=== PATIENT | male | born 1940 | race Caucasian/White ===

== ENCOUNTER 2016-05-26 11:03 | Emergency (ER) | payer MEDICARE, BC ==
--- NOTE | ~2016-05-26 | CT57 ---
[facility] A Service of [facility] & [facility] RADIOLOGY TEXT RESULTS PATIENT: SUZANNA ARROYO LOCATION: [facility] : 39 UNIT #: [id number] AGE: [address]: Amna Sears MD SEX: M ORDER DR: [id number] [facility] [address] [place], [place] [address] [id number] E MR#: [id number] Acc #: [id number] NAME: SUZANNA ARROYO. : 1940 SEX: M STUDY DATE/TIME: 05/26/2016 14:02 UNIT: [facility] ROOM: STUDY DESCRIPTION: CT Chest Wo Cont Attending Physician: Amna Sears M.D. Ordering Physician: Amna Sears M.D. Primary Care Physician: Katja Sosa M.D. MEDICAL IMAGING REPORT This report is preliminary unless electronic signature is present EXAM CT of the chest without contrast, 05/26/2016 COMPARISON 11/02/2015 HISTORY Transaxial imaging of the chest was performed without contrast and compared directly to the patient's study of October 2015. TECHNIQUE This CT exam was performed with one or more of the following radiation dose reduction techniques: automatic exposure control, adjustment of mA and/or kV according to patient size, and iterative reconstruction. FINDINGS Scans show evidence of chronic interstitial fibrotic changes. Calcified granuloma in the right upper lobe, pleural-based density in the left upper lobe stable. Fibrosis in the right middle lobe anteromedially and in the lingula. There is an area of pleural thickening or airspace disease in the superior segment of the left lower lobe. This is pleural-based measuring 1.4 x 3.6 cm. It is more prominent than it was on the patient's previous CAT scan. No mediastinal mass or lymphadenopathy. The patient has had prior bypass surgery. Scans through the upper abdomen show postop changes of prior left nephrectomy. CONCLUSION 1. Underlying pulmonary fibrosis. Areas of pulmonary parenchymal scarring in the apices and in the right middle lobe and lingula. 2. Area of pleural based density in the superior segment of the left lower lobe posteromedially on the right. This has increased in size measuring now about 3.6 x 1.4 cm. It has a little more rounded borders. Consider further imaging with PET/CT to determine any STS. [facility] A Service of [facility] RADIOLOGY TEXT RESULTS PATIENT: SUZANNA ARROYO LOCATION: [facility] : 39 UNIT #: [id number] AGE: [address]: Amna Sears MD SEX: M ORDER DR: activity. Dictated by... Tanner Perez M.D. THIS IS AN ELECTRONICALLY VERIFIED REPORT Tanner Perez M.D. at 05/27/2016 4:26 PM PAPI/fili TD: 05/26/2016 16:13 JOB #: [id number] MEDICAL IMAGING REPORT Page 1 of 1 COPY
--- NOTE | ~2016-05-26 | CT4 ---
[facility] A Service of [facility] RADIOLOGY TEXT RESULTS PATIENT: SUZANNA ARROYO LOCATION: [facility] : 39 UNIT #: [id number] AGE: [address]: Amna Sears MD SEX: M ORDER DR: [id number] [facility] [address] [place], [place] [address] [id number] E MR#: [id number] Acc #: [id number] NAME: SUZANNA ARROYO : 1940 SEX: M STUDY DATE/TIME: 05/26/2016 14:02 UNIT: [facility] ROOM: STUDY DESCRIPTION: CT Abd and Pelv Wo Cont Attending Physician: Amna Sears M.D. Ordering Physician: Amna Sears M.D. Primary Care Physician: Katja Sosa M.D. MEDICAL IMAGING REPORT This report is preliminary unless electronic signature is present EXAM CT of the abdomen and pelvis without contrast. DATE OF EXAM 05/26/2016 INDICATIONS 76-year-old male with burning in abdomen and nausea for 1 week. History of renal cell carcinoma and left nephrectomy. TECHNIQUE CT scan of the abdomen and pelvis was performed without contrast. Coronal and sagittal reformatted images were obtained. NOTE: This CT exam was performed with one or more of the following radiation dose reduction techniques: automatic exposure control, adjustment of mA and/or kV according to patient size, and iterative reconstruction. COMPARISON Comparison is made with 11/02/2015. FINDINGS Please refer to separate dictated CT of the chest for findings above the diaphragm. The liver and gallbladder are unremarkable. The spleen is unremarkable. Left nephrectomy. There is a tiny nonobstructing stone in the lower pole of the right kidney. The adrenal glands are unremarkable. The pancreas is unremarkable. PELVIS: Prostatic calcifications. Postop changes from inguinal herniorrhaphies. Colon is unremarkable. No free fluid in the pelvis. The bone windows are unremarkable. [facility] A Service of [facility] RADIOLOGY TEXT RESULTS PATIENT: SUZANNA ARROYO LOCATION: [facility] : 39 UNIT #: [id number] AGE: [address]: Amna Sears MD SEX: M ORDER DR: IMPRESSION 1. There are no acute findings. 2. Left nephrectomy. 3. Tiny nonobstructing stone in the right kidney. Dictated by... Edis Mccollum M.D. THIS IS AN ELECTRONICALLY VERIFIED REPORT Edis Mccollum M.D. at 05/26/2016 4:51 PM ZOYA/darcie TD: 05/26/2016 15:54 JOB #: [id number] MEDICAL IMAGING REPORT Page 1 of 1 COPY
[~2016-05-26 11:03] MED LIST: AMLODIPINE BES2.5 MG PO; ANTIDIARRHEAL2 MG PO; ASPIR-TRIN325 MG PO; ASPIRIN81 M1 PO; COATED ASPIRIN325 M1 PO; CYANOCOBAL1000 MCG/1 INJ; CYANOCOBAL1000 MCG/M INJ; DIPHENOXYLATE/A1 TA1 PO; DITROPAN PO; FLOMAX0.4 M1 PO; GABAPENTIN300 M2 PO; GLUCOSAMINE 1,51 CA1 PO; HYDRALAZINE HCL50 MG PO; HYDROCODON-ACE1 EAC7 PO; HYDROCODONE-APA1 T57 PO; INLYTA5 MG PO; LASIX PO; LOMOTIL WHITE2.5 MG PO; METOPROLOL TAR100 MG PO; MULTI-VITAMIN W1 TA1 PO; NEURONTIN300 MG PO; NIACIN PO; NORVASC PO; OMEPRAZOLE20 M1 PO; PANTOPRAZOLE SO40 MG PO; PHENERGAN25 M1 PO; PROTONIX PO; SIMVASTATIN10 MG PO; SIMVASTATIN20 MG PO; SIMVASTATIN40 MG PO; SYMBICORT INH; SYNTHROID0.05 MG PO; TAMSULOSIN HCL0.4 MG PO; TIROSINT50 MCG PO; VITAMIN D3400 UNI1 PO; VITAMIN D3400 UNI2 PO; ZINC SULFATE220 M1 PO
[2016-05-26 11:39] LABS: URINE SOURCE CLEAN CATCH
[2016-05-26 11:43] LABS: URINE APPEARANCE CLEAR; URINE BILIRUBIN NEG (NEG); URINE BLOOD NEG (NEG); URINE COLOR YELLOW; URINE GLUCOSE NEG (NEG); URINE KETONE NEG (NEG); URINE LEUKOCYTE ESTERASE 1+ (NEG); URINE NITRATE NEG (NEG); URINE PROTEIN 1+ (NEG); URINE SPECIFIC GRAVITY 1.021 (1.003-1.035); URINE UROBILINOGEN 0.2 MG/DL (NEG)
[2016-05-26 11:43] LABS: BASOPHIL# 0.1 X10e3 (0-0.3); EOSINOPHIL# 0.2 X10e3 (0-0.7); EOSINOPHIL% 2.7 % (0.0-7.0); HEMATOCRIT 45.1 % (38.0-50.0); HEMOGLOBIN 14.2 gm/dL (13.0-16.0); LYMPHOCYTE# 1.1 X10e3 (1.0-3.5); LYMPHOCYTE% 17.5 % (17.0-45.0); MEAN CORPUSCULAR HEMOGLOBIN 26.8 PG (28-34); MEAN CORPUSCULAR HGB CONC 31.5 g/dL (30-36); MEAN PLATELET VOLUME 8.3 FL (6.5-11.5); MONOCYTE# 0.7 X10e3 (0-1.0); MONOCYTE% 10.4 % (3.0-12.0); NEUTROPHIL# 4.5 X10e3 (1.5-7.1); NEUTROPHIL% 68.4 % (40-75); PLATELET COUNT 180 X10e3 (140-420); RED CELL DISTRIBUTION WIDTH 15.6 % (11.0-15.5); WHITE BLOOD COUNT 6.6 X10e3 (4.0-10.5)
[2016-05-26 11:45] LABS: CULTURE INDICATED? YES; URBCS1 AUWI 0-2 /[HPF] (0-2); URINE BACTERIA AUWI NEG (NEGATIVE); URINE SQUAMOUS EPITHELIAL CELL NONE SEEN /[HPF]
[2016-05-26 11:51] LABS: DIFF IND NO
[2016-05-26 11:59] LABS: PARTIAL THROMBOPLASTIN TIME 29.6 SECONDS (23.5-31.3); PROTHROMBIN TIME (PATIENT) 10.7 SECONDS (9.6-11.5)
[2016-05-26 12:09] LABS: ALBUMIN SERUM 3.8 g/dL (3.5-5.0); BILIRUBIN, DIRECT 0.1 mg/dL (0.0-0.2); BILIRUBIN,INDIRECT 0.6 mg/dL (0.0-0.9); BILIRUBIN,TOTAL 0.7 mg/dL (0.2-2.0); BUN/CREATININE RATIO 12.85; CALCIUM SERUM 8.9 mg/dL (8.4-10.2); CREATININE SERUM 1.4 mg/dL (0.6-1.4); GLOM FILT RATE Estimated 48.1 mL/min (>60); POTASSIUM 3.7 mmol/L (3.5-5.1); PROTEIN TOTAL SERUM 6.6 g/dL (6.0-8.3)
[2016-05-31] MEDS ORDERED: CARAFATE1 GM PO (15:44)
[2016-05-31] MEDS ORDERED: REGLAN10 MG PO (15:45)
[2016-05-31] MEDS ORDERED: ONDANSETRON HCL4 M1 PO (15:45)
[2016-05-31] MEDS ORDERED: NORVASC10 MG PO (15:46)
[2016-05-31] MEDS ORDERED: ECOTRIN325 MG PO (15:46)
[2016-05-31] MEDS ORDERED: LOMOTIL 2.5-0.1 EACH (15:48)
[2016-05-31] MEDS ORDERED: LASIX PO (15:49)
[2016-05-31] MEDS ORDERED: NEURONTIN300 MG PO (15:49)
[2016-05-31] MEDS ORDERED: HYDROCODON-ACE1 EAC7 PO (15:49)
[2016-05-31] MEDS ORDERED: INLYTA5 MG PO (15:49)
[2016-05-31] MEDS ORDERED: HCTZ PO (15:50)
[2016-05-31] MEDS ORDERED: SYNTHROID0.05 MG DOB (15:50)
[2016-05-31] MEDS ORDERED: CLARITIN10 M3 (15:50)
[2016-05-31] MEDS ORDERED: MEGACE ORA400 MG/10 (15:51)
[2016-05-31] MEDS ORDERED: LOPRESSOR (15:52)
[2016-05-31] MEDS ORDERED: DITROPAN XL10 MG (15:52)
[2016-05-31] MEDS ORDERED: PROTONIX PO (15:52)
[2016-05-31] MEDS ORDERED: PHENERGAN25 M1 (15:53)
[2016-05-31] MEDS ORDERED: SIMVASTATIN40 MG (15:53)
[2016-05-31] MEDS ORDERED: FLOMAX0.4 M1 (15:53)
[2016-05-31] MEDS ORDERED: SYMBICORT INH (15:53)
[2016-05-31] MEDS ORDERED: VITAMIN B12 INJECT (15:54)
[2016-05-31] MEDS ORDERED: VITAMIN D3400 UNI1 PO (15:54)
== END 2016-05-26 15:54 | disposition home or self-care (01) ==
LOC: CED 11:03
PROVIDERS: Emergency Medicine
DX: R10.32 Left lower quadrant pain (principal); R11.0 Nausea; R19.7 Diarrhea, unspecified; E78.5 Hyperlipidemia, unspecified; I10 Essential (primary) hypertension; J44.9 Chronic obstructive pulmonary disease, unspecified; E03.9 Hypothyroidism, unspecified; G62.9 Polyneuropathy, unspecified; Z90.49 Acquired absence of other specified parts of digestive tract; Z98.890 Other specified postprocedural states
CPT/HCPCS: 36415; 71250; 74176; 80048; 80076; 81003; 84443; 85025; 85610; 85730; 87086; 96361; 96374; 96375; 99284; J2270; J2405

== ENCOUNTER → 2016-07-13 | Outpatient (CLI) | payer MEDICARE, BC ==
[~2016-07-13] MED LIST changes: +ALLERCLEAR10 MG PO; +CARAFATE1 GM PO; +CLARITIN10 M3; +CYANOCOBAL1000 MCG/1 IM; +DITROPAN XL10 MG; +ECOTRIN325 MG PO; +FLOMAX0.4 M1; +FLONASE 0.05% N16 G1; +HCTZ PO; +LASIX20 MG PO; +LITE COAT ASPI325 M2 PO; +LOMOTIL 2.5-0.1 EACH; +LOPRESSOR; +MEGACE ORA400 MG/10; +METOPROLOL PO; +NORVASC10 MG PO; +ONDANSETRON HCL4 M1 PO; +PHENERGAN25 M1; +PROAIR RESPICL90 MCG INH; +REGLAN10 MG PO; +SIMVASTATIN40 MG; +SYMBICORT 160/4.6 GM INH; +SYNTHROID0.05 MG DOB; +SYNTHROID112 MCG PO; +VITAMIN B12 INJECT; +ZOCOR PO; +ZOFRAN 2 MG4 MG/2 ML PO
[2016-07-13 12:12] LABS: ALBUMIN SERUM 3.6 g/dL (3.5-5.0); BILIRUBIN,TOTAL 0.5 mg/dL (0.2-2.0); BUN/CREATININE RATIO 20.9; CALCIUM SERUM 8.8 mg/dL (8.4-10.2); CREATININE SERUM 1.1 mg/dL (0.6-1.4); GLOM FILT RATE Estimated 64.4 mL/min (>60); POTASSIUM 4.3 mmol/L (3.5-5.1); PROTEIN TOTAL SERUM 6.3 g/dL (6.0-8.3)
== END | disposition home or self-care (01) ==
LOC: CSSDAY 09:00
PROVIDERS: Internal Medicine
DX: E86.0 Dehydration (principal); N28.9 Disorder of kidney and ureter, unspecified; K76.89 Other specified diseases of liver
CPT/HCPCS: 80053; 96360

== ENCOUNTER 2016-10-31 08:03 | Emergency (ER) | payer MEDICARE, BC ==
[~2016-10-31] VITALS: Ht 170.2 cm; Wt 72.6 kg
--- NOTE | ~2016-10-31 | CT71 ---
[facility] A Service of [facility] RADIOLOGY TEXT RESULTS PATIENT: SUZANNA ARROYO LOCATION: [facility] : 39 UNIT #: [id number] AGE: [address]: Sandy Gagnon SEX: M ORDER DR: [id number] [facility] [address] [place], [place] [address] [id number] E MR#: [id number] [facility] #: [id number] NAME: SUZANNA ARROYO : 1940 SEX: M STUDY DATE/TIME: 10/31/2016 10:19 UNIT: [facility] ROOM: STUDY DESCRIPTION: CT Head Wo Contrast Attending Physician: Sandy Gagnon Pa-C Ordering Physician: Sandy Gagnon Pa-C Primary Care Physician: Katja Sosa M.D. MEDICAL IMAGING REPORT This report is preliminary unless electronic signature is present EXAM CT head 10/31/2016 HISTORY Elevated blood pressure. Headache since last night, worse with movement, frontal head pain. TECHNIQUE CT head performed skull base through vertex without intravenous contrast. This CT exam was performed with one or more of the following radiation dose reduction techniques: automatic exposure control, adjustment of mA and/or kV according to patient size, and iterative reconstruction. COMPARISON 11/01/2015 FINDINGS Motion degraded study. Brainstem unremarkable. Cerebellum and cerebral hemispheres show normal gallo matter - white matter differentiation. No hemorrhage. There is no evidence of acute cortical ischemia. There are periventricular and deep white matter tract hypodensities, likely reflecting sequelae of chronic microvascular ischemia. No acute basal ganglia abnormality. The ventricles, cisterns and sulci show mild generalized enlargement consistent with mild generalized atrophy. Stable appearance. No intra or extraaxial mass effect or abnormal intracranial fluid collection. Intraorbital soft tissues are unremarkable. Visualized paranasal sinuses and mastoid air cells are clear. There are cavernous carotid arterial calcifications. IMPRESSION 1. No acute abnormality is seen in the brain. If the patient has ongoing neurologic symptoms, consider follow up imaging. Please [facility] A Service of [facility] RADIOLOGY TEXT RESULTS PATIENT: SUZANNA ARROYO LOCATION: [facility] : 39 UNIT #: [id number] AGE: [address]: Sandy Gagnon SEX: M ORDER DR: note, multiple images significantly degraded by streak/motion artifact. 2. Mild generalized atrophy, stable. Periventricular and deep white matter tract probable sequelae of chronic microvascular ischemia stable. 3. Vascular calcifications. Dictated by... Tanner Man M.D. THIS IS AN ELECTRONICALLY VERIFIED REPORT Tanner Man M.D. at 11/01/2016 4:57 PM JACIEL/corey TD: 10/31/2016 19:58 JOB #: [id number] MEDICAL IMAGING REPORT Page 1 of 1 COPY
[~2016-10-31 08:03] MED LIST changes: -ALLERCLEAR10 MG PO; -CYANOCOBAL1000 MCG/1 IM; -FLONASE 0.05% N16 G1; -LASIX20 MG PO; -LITE COAT ASPI325 M2 PO; -METOPROLOL PO; -PROAIR RESPICL90 MCG INH; -SYMBICORT 160/4.6 GM INH; -SYNTHROID112 MCG PO; -ZOCOR PO; -ZOFRAN 2 MG4 MG/2 ML PO
[2016-10-31] MEDS ORDERED: NORVASC10 MG PO (15:50)
[2016-10-31] MEDS ORDERED: INLYTA5 MG PO (15:51)
[2016-10-31] MEDS ORDERED: PROAIR RESPICL90 MCG INH (15:51)
[2016-10-31] MEDS ORDERED: LITE COAT ASPI325 M2 PO (15:51)
[2016-10-31] MEDS ORDERED: SYMBICORT 160/4.6 GM INH (15:51)
[2016-10-31] MEDS ORDERED: FLONASE 0.05% N16 G1 (15:52)
[2016-10-31] MEDS ORDERED: GABAPENTIN300 M2 PO (15:52)
[2016-10-31] MEDS ORDERED: SYNTHROID112 MCG PO (15:52)
[2016-10-31] MEDS ORDERED: LASIX20 MG PO (15:52)
[2016-10-31] MEDS ORDERED: ALLERCLEAR10 MG PO (15:52)
[2016-10-31] MEDS ORDERED: ZOFRAN 2 MG4 MG/2 ML PO (15:53)
[2016-10-31] MEDS ORDERED: ZOCOR PO (15:54)
[2016-10-31] MEDS ORDERED: FLOMAX0.4 M1 PO (15:55)
[2016-10-31] MEDS ORDERED: CYANOCOBAL1000 MCG/1 IM (15:56)
[2016-10-31] MEDS ORDERED: VITAMIN D3400 UNI2 PO (15:56)
[2016-10-31] MEDS ORDERED: METOPROLOL PO (15:59)
== END 2016-10-31 12:00 | disposition home or self-care (01) ==
LOC: CED 08:03
DX: I10 Essential (primary) hypertension (principal); R51 Headache; E78.5 Hyperlipidemia, unspecified; E03.9 Hypothyroidism, unspecified; Z86.79 Personal history of other diseases of the circulatory system; Z95.1 Presence of aortocoronary bypass graft; Z90.49 Acquired absence of other specified parts of digestive tract; Z87.891 Personal history of nicotine dependence
CPT/HCPCS: 70450; 96374; 99284; J1885

== ENCOUNTER 2016-10-31 14:25 | Inpatient (IN) | payer MEDICARE, BC ==
[~2016-10-31] VITALS: Ht 175.3 cm; Wt 48.0 kg
--- NOTE | ~2016-10-31 | CO ---
Unit #: [id number] #: [id number] Patient: MANE ARROYO [id number] [facility] [address] [place], [place] [address] [id number] I MR#: [id number] NAME: MANE ARROYO. ROOM: 329 Age: 76 Sex: M Admission Date: 10/31/2016 : 1940 Attending Physician: Mane Watson M.D. Primary Care Physician: Katja Sosa M.D. Consultation Date: 11/01/2016 CONSULTATION REPORT PRIMARY CARE PHYSICIAN Katja Sosa M.D. REASON FOR CONSULTATION Mental status changes. PATIENT IDENTIFICATION This is a 76-year-old right-handed white male, who is evaluated in room ICU bed 14 at [facility]. SOURCE OF INFORMATION The medical records and my discussion with the family and evaluation done by admitting team and I actually saw this gentleman on 10/30/2015 for something similar, which was diagnosed as hypertensive encephalopathy. PROBLEM LIST 1. Significant hypertension. 2. History of renal cell carcinoma with lung metastasis, followed by Dr. Gan at [facility]. 3. COPD. 4. Hypertension. 5. Hyperlipidemia. 6. Coronary artery disease, status post coronary artery bypass grafting. 7. Hypothyroidism. 8. Neuropathy. 9. Nephrectomy. 10. Appendectomy. 11. Right knee surgery. 12. Left inguinal hernia repair. 13. Right inguinal hernia repair. 14. Cataract surgery. 15. Laser lithotripsy. 16. EGD and colonoscopy. HISTORY OF PRESENT ILLNESS This is a 76-year-old gentleman with past medical history which is very significant, who came to the emergency room with some confusion and blood pressure problem. I believe he was sent home and came back and had significant confusion. His family says that he was talking out of his head, so he was brought in here. His vital sign showed significant abnormality. The blood pressure has been documented as high as 232 systolic and 118 diastolic. There is another number, which probably is error. He has been afebrile. His labs do not look bad. Unit #: [id number] #: [id number] Patient: MANE ARROYO No falls or injuries. He is afebrile. No change in medication, though he is taking a lot of them. His labs looked okay except for probably mild dehydration with H and H of 16.3 and 50.5. He had a CT done first on 10/31/2016 in the morning and which was okay and then there was significant motion artifact. Nothing suggesting seizure. No headaches. He is quite confused still and look at the previous records, he has done this kind of thing in the past. He is now arousable. He is confabulating and perseverating. He recognizes his . He says he is at [employer], but he is not otherwise oriented. He can name. Repetition is questionable. He is moving all extremities. PAST MEDICAL HISTORY As discussed above. PAST SURGICAL HISTORY As discussed above. ALLERGIES None. HOME MEDICATIONS Norvasc 10 mg, ProAir 2 puffs inhaled b.i.d., aspirin 325 mg daily, Inlyta 5 mg b.i.d., Symbicort 160-4.5 two puffs inhaled b.i.d., Flonase, Lasix 20 mg daily, gabapentin 300 mg t.i.d., Synthroid 112 mcg daily, loratadine 10 mg daily, Zofran 4 mg q.6 hours p.r.n., Zocor 20 mg daily, Flomax 0.4 mg at bedtime, B12 monthly, Vitamin D3 800 units daily, metoprolol. FAMILY HISTORY Sister had unknown malignancy. SOCIAL HISTORY He is and lives with his . He is a . He is a former smoker. He typically walks with a cane. REVIEW OF SYSTEMS Could not be obtained because of his present confused state. PHYSICAL EXAMINATION VITAL SIGNS: Temperature 98 degrees Fahrenheit, pulse 86, respirations 17, blood pressure 140/59, O2 saturations were 94% to 100%, there are actually 2 weights written here 127, 114, and 160, so I am cautious about that. NEUROLOGIC: The patient is arousable. He is oriented to himself. He is confabulating and perseverating, recognizes his . He knows he is at [employer]. He is not oriented to time. He can name and he can follow commands. Cranial nerve examination, responded to threats in the primary obrien. Unit #: [id number] #: [id number] Patient: ARROYO,MANE D Full obrien are questionable. Funduscopic examination was not successful. Eye movements seem to be conjugate. Pupils are sluggishly reactive. No ptosis. No nystagmus. Sensation on the face and scalp are normal. Facial asymmetry was not seen. Hearing is questionable, decreased bilaterally. Tongue was midline. I could not visualize his oropharynx or uvula. No neck stiffness was seen. Motor examination; he has decreased bulk, but his tone seemed to be okay. He is moving all extremities. Strength of at least 4/5 all over. I did not see any asymmetry or proximal versus distal weakness. Sensory examination intact for soft touch and pain. Extinction is questionable. Romberg was not evaluated. Gait examination was deferred. I could not get any reflexes. Toes are equivocal. Coordination very questionable. Gait examination was obviously deferred. DIAGNOSTIC STUDIES LABORATORY RESULTS: Reviewed. IMAGING STUDIES: Reviewed. IMPRESSION Acute confusional state with significant hypertension, likely this is hypertensive encephalopathy. Considering his age and comorbidities, I cannot rule out metastatic disease. He does not look like he has meningitis or encephalitis at present with no signs of meningismus, but him being on chemo or cannot rule that out. Unfortunately, he is so restless that I cannot do an MRI or LP unless I sedate him to the extent that he may end up intubated, so I will give him a day or so with bringing the blood pressure down and see how he does. His labs were reviewed and they were okay. There is no fever or other abnormalities. If he does not improve, then I will do further workup and treat as indicated. Call me for any other questions, issues, or concerns and further treatment will be based on findings. I discussed with the family in detail. Dictated by... Ara Aguillon/julien TD: 11/01/2016 16:48 JOB #: [id number] CONSULTATION REPORT Page 1 of 1 X Dami Fields MD CONSULTATION REPORT
--- NOTE | ~2016-10-31 | CT15 ---
[facility] A Service of [facility] RADIOLOGY TEXT RESULTS PATIENT: MANE ARROYO LOCATION: [facility] 329-01 : 39 UNIT #: [id number] AGE: [address]: Mane Watson MD SEX: M ORDER DR: [id number] [facility] [address] [place], [place] [address] [id number] I MR#: [id number] #: [id number] NAME: MANE ARROYO. : 1940 SEX: M STUDY DATE/TIME: 10/31/2016 17:04 UNIT: [facility] ROOM: [facility] STUDY DESCRIPTION: CT Angio Chest Attending Physician: Mane Watson M.D. Ordering Physician: Dedrick Molina M.D. Primary Care Physician: Katja Sosa M.D. MEDICAL IMAGING REPORT This report is preliminary unless electronic signature is present EXAM CT angiogram chest, 10/31/2016. FINDINGS Please see CT angiogram abdomen and pelvis, 10/31/2016, for results. Dictated by... Tanner Man M.D. THIS IS AN ELECTRONICALLY VERIFIED REPORT Tanner Man M.D. at 11/01/2016 4:57 PM JACIEL/elvin TD: 11/01/2016 13:06 JOB #: [id number] MEDICAL IMAGING REPORT Page 1 of 1 COPY
--- NOTE | ~2016-10-31 | EKG ---
PATIENT: SUZANNA ARROYO UNIT #: [id number] Ventricular Rate: 66 BPM Atrial Rate: 66 BPM P-R Interval: 94 ms QRS Duration: 116 ms Q-T Interval: 446 ms QTC Calculation(Bezet): 467 ms P [place]: 62 degrees Calculated R [place]: -5 degrees Calculated T [place]: 99 degrees Diagnosis Line: Normal sinus rhythm Diagnosis Line: Ventricular pre-excitation, WPW pattern type B Diagnosis Line: Abnormal ECG Diagnosis Line: When compared with ECG of 30-OCT-2015 05:50, Diagnosis Line: Pnsif-Ajsiifjvv-Rqfyw is now Present Diagnosis Line: Confirmed by IVONNE NAPOLES MD ([id number]) on Diagnosis Line: 11/01/2016 2:08:50 PM INTERPRETING MD: YESIKA HU
--- NOTE | ~2016-10-31 | CT71 ---
[facility] A Service of [facility] RADIOLOGY TEXT RESULTS PATIENT: MANE ARROYO LOCATION: [facility] 329-01 : 39 UNIT #: [id number] AGE: [address]: Mane Watson MD SEX: M ORDER DR: [id number] [place] [id number] [place], [place] [address] [id number] I MR#: [id number] Acc #: [id number] NAME: MANE ARROYO. : 1940 SEX: M STUDY DATE/TIME: 10/31/2016 21:09 UNIT: [facility] ROOM: [facility] STUDY DESCRIPTION: CT Head Wo Contrast Attending Physician: Mane Watson M.D. Ordering Physician: Quita Garza M.D. Primary Care Physician: Katja Sosa M.D. MEDICAL IMAGING REPORT This report is preliminary unless electronic signature is present EXAM CT brain without contrast HISTORY Confusion and weakness today. FINDINGS CT brain without contrast was performed following contrast-enhanced CT chest, abdomen and pelvis earlier today. This CT exam was performed with one or more of the following radiation dose reduction techniques: Automatic exposure control, adjustment of mA and/or kV according to patient size, and iterative reconstruction. The exam is severely limited by patient motion, despite scan repetition. No gross steroid assess intracranial mass, edema, or hemorrhage is identified. Mild generalized cerebral cortical atrophy. IMPRESSION 1. The exam sensitivity is severely limited by patient motion artifact despite scan repetition. 2. No gross intracranial acute abnormality is identified. 3. Generalized cerebral cortical atrophy. Dictated by... Orlando Pineda M.D. THIS IS AN ELECTRONICALLY VERIFIED REPORT Orlando Pineda M.D. at 11/02/2016 11:44 PM DFJoceline/christoph TD: 11/01/2016 14:33 JOB #: [id number] [facility] A Service [facility] RADIOLOGY TEXT RESULTS PATIENT: MANE ARROYO LOCATION: [facility] 329-01 : 39 UNIT #: [id number] AGE: [address]: Mane Watson MD SEX: M ORDER DR: MEDICAL IMAGING REPORT Page 1 of 1 COPY
--- NOTE | ~2016-10-31 | EKG ---
PATIENT: SUZANNA ARROYO UNIT #: [id number] Ventricular Rate: 65 BPM Atrial Rate: 65 BPM P-R Interval: 96 ms QRS Duration: 118 ms Q-T Interval: 466 ms QTC Calculation(Bezet): 484 ms P [place]: 65 degrees Calculated R [place]: 17 degrees Calculated T [place]: 101 degrees Diagnosis Line: Sinus rhythm with short KS Diagnosis Line: Possible Left atrial enlargement Diagnosis Line: Left ventricular hypertrophy with QRS widening and Diagnosis Line: repolarization abnormality Diagnosis Line: Inferior infarct , age undetermined Diagnosis Line: Kkvir-Dinlwxdro-Udpfm Diagnosis Line: Anteroseptal infarct , age undetermined Diagnosis Line: Abnormal ECG Diagnosis Line: Diagnosis Line: Confirmed by IVONNE NAPOLES MD ([id number]) on Diagnosis Line: 11/01/2016 2:10:29 PM INTERPRETING MD: YESIKA HU
--- NOTE | ~2016-10-31 | A ---
[facility] Nutrition Therapy DATE: 11/01/16 Patient: SUZANNA Gomez CRUZ Physician: JOI Address: [address] Room/Bed: [address], Zip: [place] [id number] Admit Date: 10/31/16 Date of : 38 Height: 5 9 Weight: 127 58 NUTRITIONAL ASSESSMENT: REASON: LOW BMI (17.9-19.9) PATIENT ADMITTED FOR AMS, UNCONTROLLED HTN, HEADACHE PMH: HTN, HLD, CAD, COPD, RENAL CELL CA WITH METS TO LUNG, HYPOTHYROIDISM, NEUROPATHY Anthropometrics: HT: 67", WT: 114# PER CHART, 125# PER FAMILY, BMI: 17.9-19.6 Labs: 10/31/16- ALL NUTRITIONAL LABS WNL Meds: LIPITOR, VIT D, SYNTHROID, ZOFRAN, NACL, HALDOL, GEODON, INLYTA I/O & Bowel function: 253/625 Skin Integrity: INTACT, SCATTERED BRUISING TO BUE Estimated Nutrition Needs: INCREASED 2' NPO STATUS Assessment: PATIENT IS A 76 Y/O MALE ADMITTED FOR AMS, HTN, AND A HEADACHE. PATIENT HAS BEEN DISORIENTED, CONFUSED, AND HAS SOME AGGITATION. HE IS UNABLE TO FOLLOW COMMANDS ATT AND HAS POSSIBLE METS TO BRAIN. HIS HEAD CT WAS NORMAL. PATIENT IS NOT ABLE/REFUSING TO SWALLOW ANYTHING ATT, SO A BEDSIDE SWALLOW IS NOT ABLE TO BE COMPLETED. PATIENT WAS ASLEEP DURING VISIT. PATIENT DID HAVE FAMILY AT BEDSIDE. THEY STATED THAT PATIENT HAS ALWAYS BEEN PRETTY SMALL. HE USED TO WEIGH 140# OVER A YEAR AGO. THEY ALSO STATED THAT HE DOES LIKE TO EAT AT HOME, HE HAS NO RESTRICTIONS ON HIS DIET, AND HE HAS NOT HAD ANY CHEWING OR SWALLOWING DIFFICULTIES THAT THEY KNOW OF. THERE ARE NO CURRENT PLANS FOR A DHT ATT. PATIENT IS AT A HIGH RISK FOR PULLING IT OUT. Dx: INADEQUATE NUTRIENT INTAKE R/T CURRENT CONDITION AEB NPO STATUS, NOT SWALLOWING Intervention: RD ASSESSMENT, MEDS/FLUIDS PER MD Monitoring, Evaluation and Goals: 1. ADEQUATE PO INTAKES >50% OF MEALS 2. PREVENT, CORRECT MICRO/MACRO NUTRIENT DEFICIENCIES 3. WEIGHT; PROMOTE A STEADY WEIGHT GAIN TOWARDS A HEALTHY BMI OF 19-25 4. LABS WNL MONITOR: LABS, WEIGHT, I/Os [facility] Therapy DATE: 11/01/16 Patient: SUZANNA Gomez CRUZ Physician: JOI Address: [address] [facility] Room/Bed: [address], Zip: [place] [address] Admit Date: 10/31/16 Date of : [birth year] Height: 5 9 Weight: 127 58 Recommendations: 1. ONCE DIET ADVANCEMENT MEDICALLY FEASIBLE, RECOMMEND A REGULAR DIET WITH ENSURE TID 2. ENCOURAGE ADEQUATE PO AND FLUID INTAKES ONCE DIET ADVANCES 3. OBTAIN WEIGHTS ROUTINELY (EVERY 2-3 DAYS) D/T PATIENT'S LOW BODY WEIGHT RD TO F/U PER PROTOCOL AND PRN R/T PATIENT AT SEVERE NUTRITION RISK Respectfully, SANAZ HOOVER, WILIAM, LD [facility] cc: client file
--- NOTE | ~2016-10-31 | FU ---
[facility] Nutrition Therapy DATE: 11/03/16 Patient: SUZANNA Gomez ARROYO Physician: JOI Address: [address] [facility] Room/Bed: [address] [place] [address], Zip: [place] [address] Admit Date: 10/31/16 Date of : 39 Height: 5 9 Weight: 105 48 NUTRITION MONITORING/FOLLOW-UP: Reason: Nutrition follow-up/enteral nutrition recommendations Admitting dx: 76 y/o male admitted with uncontrolled HTN, AMS and headache Anthropometrics: Ht: 67", admission wt: 127 lbs per family (57.7 kg), BMI: 19.6 (normal; based on admission wt), current wt: 105 lbs??, weight range since admission: 105-218 lbs?? Labs: BUN 29, glucose/lytes WNL Meds: Vitamin D, IV synthroid, zofran prn, D5NS @ 50 ml/hr GI: Last BM 10/30 (per ) Skin: Issues noted, no edema Estimated Nutrition Needs: Pt has increased nutrient needs due to cancer w/ mets and weight loss 6767-3706 kcals/day (30-35 kcals/day; based on admission wt) 64-75 g protein/day (1.1-1.3 g/day; based on admission wt) Fluids consistent with kcal needs or per MD Assessment: Chart reviewed, events noted. CT head negative; patient's AMS, confusion and restlessness remain. He is still NPO as he failed his swallow study and is not awake enough to do a repeat study. Note drastically varying documented weights since admission, believe these to be inaccuracies. Cardiology assessed the patient yesterday and are going to get neuro on board. RD will leave EN recs in case it is decided to place a feeding tube. See nutrition dx, goals and recs as stated below. Will continue to follow up per protocol. Dx: Inadequate nutrient intake r/t clinical condition AEB NPO status, not swallowing - RESOLVED New nutrition dx: Inadequate oral intake r/t AMS, dysphagia AEB NPO x 3 days, failed PARAMEDIC RN study, possible need for EN. Intervention: PO diet vs EN Monitoring, Evaluation and Goals: 1. PO intake > 50% of meals - NOT RELEVANT (pt is NPO) 2. Prevent/correct micro/macro nutrient deficiencies - UNABLE TO MEASURE [facility] Nutrition Therapy DATE: 11/03/16 Patient: SUZANNA ARROYO Physician: JOI Address: [address] [place] [address] Room/Bed: [address] [place] [address], Zip: [place] [address] Admit Date: 10/31/16 Date of : 39 Height: 5 9 Weight: 105 48 3. Maintain weight status - UNMEASURED (note inaccurate weight ranges since admission) 4. Labs WNL - MET New nutrition goals (all goals are listed below, disregard above goals): 1. Tolerance of oral diet advancement vs enteral nutrition support consistent with estimated needs. 2. Maintain admission weight status (57.7 kg). 3. Labs will remain WNL. 4. Promote regular BM's. Monitor: per protocol, criteria to determine if above goals met Recommendations: 1. If enteral nutrition is consistent with the patient's goals of care, place DHT and start feeds with Jevity 1.5 @ 20 ml/hr and increase by 10 ml q 8 hours until goal rate of 55 ml/hr is reached, to provide 1320 ml, 1980 kcals, 84 g protein and 1003 ml water. Once at goal rate flush with 250 ml free water QID, or per MD. 2. Repeat PARAMEDIC RN eval once appropriate and advance oral diet per their recs only with no other dietary restrictions. Suggest regular diet with Ensure Enlive TID (if pt is appropriate for thin liquids). If thickened liquids are needed order Ensure pudding TID. 3. Consider adding a bowel regimen to the patient's medications if he does not have a BM soon (last BM 10/30). 4. Please obtain an accurate current weight. Patient's documented weights have ranged from 105-218 lbs since admission. Status: Moderate-severe nutrition risk Respectfully, Kristie Gray, WILIAM, LD [employer] [facility] Nutrition Therapy DATE: 11/03/16 Patient: SUZANNA ARROYO Physician: JOI Address: [address] [place] [address] Room/Bed: [address] [place] [address], Zip: [place] [address] Admit Date: 10/31/16 Date of : 39 Height: 5 9 Weight: 105 48 cc: client file
--- NOTE | ~2016-10-31 | HP ---
Unit #: [id number] #: [id number] Patient: SUZANNA ARROYO [id number] [facility]. [place], [place] [address] [id number] MR#: [id number] NAME: SUZANNA ARROYO. ROOM: 13784 Age: 76 Sex: M Admission Date: 10/31/2016 : 1940 Attending Physician: Quita Garza M.D. Primary Care Physician: Katja Sosa M.D. HISTORY AND PHYSICAL CHIEF COMPLAINT Chief complaint is altered mental status. HISTORY OF PRESENT ILLNESS The patient is a 76-year-old male with past medical history of hypertension, hyperlipidemia, coronary artery disease, COPD, renal cell carcinoma with lung metastasis, hypothyroidism, neuropathy, who presented to the emergency department for evaluation of the above. The patient was seen in the emergency department earlier today for headache and uncontrolled hypertension. He is currently unable to provide history but per his who is at bedside the headache was severe. He did not have any vomiting. No vision changes. No speech abnormalities. A head CT was done and negative. He was given Reglan, Benadryl and Toradol. He was discharged home. Upon returning home, the patient became increasingly confused. He had apparently been somewhat confused earlier but had returned to baseline. He became much more confused upon returning home. He was "talking out of his head." He has not had any vomiting or diarrhea. No cough. No chest pain. No shortness of breath. No change in medications. In the emergency department a CT angio of chest, abdomen and pelvis were done and showed no dissection. EKG was abnormal with ST depression in leads V5 and V6. Troponin was negative. He was seen by Cardiology and they have written orders including a repeat head CT as well as Cachorro cross. He is being admitted to [facility] for evaluation and further treatment. PAST MEDICAL HISTORY 1. Admission to [facility] October 28-2015 for hypertensive emergency and headache thought to be secondary to hypertension. 2. Neuropathy. 3. History of renal cell carcinoma with lung metastasis, followed by Dr. Pena at the [place]. Currently on Inlyta. 4. COPD, not on home oxygen. 5. Hypertension. 6. Hyperlipidemia. 7. Coronary artery disease, status post coronary artery bypass grafting, followed by Dr. Villagran. 8. Hypothyroidism. 9. Echocardiogram October 30, 2015 showed ejection fraction of 50 with Unit #: [id number] #: [id number] Patient: SUZANNA ARROYO mild concentric left ventricular hypertrophy, moderate septal hypokinesis, inferior wall akinesis, mild aortic regurgitation, mild mitral valve prolapse, mild to moderate mitral regurgitation, mild tricuspid regurgitation. PAST SURGICAL HISTORY 1. Coronary artery bypass grafting. 2. Nephrectomy. 3. Appendectomy. 4. Right knee surgery. 5. Left inguinal hernia repair. 6. Right inguinal hernia repair. 7. Cataract surgery. 8. Laser lithotripsy. 9. EGD and colonoscopy. SOCIAL HISTORY The patient lives with his . He is a former smoker. He typically walks with a cane. FAMILY HISTORY Family history is notable for his sister having an unknown malignancy. ALLERGIES No known allergies. HOME MEDICATIONS 1. Norvasc 10 mg daily. 2. ProAir 2 puffs inhaled twice daily. 3. Aspirin 325 mg daily. 4. Inlyta 5 mg twice daily. 5. Symbicort 160/4.5 2 puffs inhaled twice daily. 6. Flonase daily. 7. Lasix 20 mg daily. 8. Gabapentin 300 mg t.i.d. 9. Synthroid 112 mcg daily. 10. Loratadine 10 mg daily. 11. Zofran 4 mg q.6 h. p.r.n. 12. Zocor 20 mg daily. 13. Flomax 0.4 mg at bedtime. 14. Cyanocobalamin monthly. 15. Vitamin D3 800 units daily. 16. Metoprolol 50 mg twice daily. REVIEW OF SYSTEMS A complete review of systems is unobtainable from the patient due to altered mental status but negative except as indicated in the HPI per family. DIAGNOSTIC TESTS CARDIAC: EKG shows normal sinus rhythm, with a rate of 66 beats per minute. There is what looks like ST depression leads V5 and V6. IMAGING: CT of the head showed nothing acute. CT angiogram of chest, abdomen and pelvis shows no dissection. LABORATORY: Troponin is less than 0.05. Basic metabolic panel is normal. Unit #: [id number] #: [id number] Patient: SUZANNA ARROYO Complete blood count notable for hemoglobin and hematocrit of 16.9 and 50.8 respectively. PHYSICAL EXAM VITAL SIGNS: Temperature is 97.3. Pulse 65. Respirations 16. Blood pressure 199/88. Oxygen saturation 100% on room air. GENERAL: The patient is a male who is sleeping but opens eyes to physical stimuli. HEENT: The head is atraumatic. Mucous membranes are moist. NECK: Is supple. Trachea is midline. CARDIOVASCULAR: Is regular rate and rhythm. LUNGS: Are clear to auscultation bilaterally with no increased work of breathing. ABDOMEN: Is soft, nontender, with bowel sounds present all four quadrants. EXTREMITIES: Are nontender with no pedal edema. NEURO: The patient is not answering questions and not following commands. He is moving all extremities. PSYCH: Unable to assess. SKIN: Of examined areas is warm and dry. ASSESSMENT The patient is a 76-year-old male with: 1. Altered mental status. The patient did receive Reglan and Benadryl earlier today which could be contributing. Blood pressure was as high as 232 systolic and 100 diastolic this morning. Most recent blood pressure is 149/90 and patient is still confused. 2. Uncontrolled hypertension. Cardiology has ordered Cardene drip. 3. Abnormal EKG. 4. Headache. Per the family, headache improved following medications this morning (Toradol, Benadryl, Reglan). 5. Hyperlipidemia. 6. Coronary artery disease status post coronary artery bypass grafting. 7. COPD. 8. Renal cell carcinoma with lung metastasis followed by Dr. Pena. 9. Hypothyroidism. 10. Neuropathy. 11. Former smoker. PLAN 1. Admit to ICU. 2. N.p.o. until more awake and passes bedside swallow. 3. TSH, B12 and folate. 4. Neuro checks. 5. Hold gabapentin which could be contributing to altered mental status. 6. Bedrest. 7. Fall precautions. 8. Consult Dr. Dawson regarding abnormal EKG and uncontrolled hypertension. He has already seen the patient and written orders including Cardene drip, metoprolol, Catapres, neurology consult. 9. Serial cardiac enzymes. 10. Repeat head CT. 11. Check liver function tests. 12. Urinalysis with culture and sensitivity. 13. Supplemental oxygen. 14. Repeat labs in the morning. 15. SCDs for DVT prophylaxis. Unit #: [id number] #: [id number] Patient: SUZANNA ARROYO Dictated by Ara Wagner/shahzad TD: 10/31/2016 20:28 JOB #: [id number] HISTORY AND PHYSICAL Page 1 of 1 X Quita Garza MD HISTORY AND PHYSICAL
--- NOTE | ~2016-10-31 | CT14 ---
[facility] A Service of [facility] & [facility] RADIOLOGY TEXT RESULTS PATIENT: MANE ARROYO LOCATION: [facility] 329-01 : 39 UNIT #: [id number] AGE: [address]: Mane Watson MD SEX: M ORDER DR: [id number] [facility] [address] [facility]. [place], [place] [address] [id number] I MR#: [id number] Acc #: [id number] NAME: MANE ARROYO. : 1940 SEX: M STUDY DATE/TIME: 10/31/2016 17:04 UNIT: [facility] ROOM: [facility] STUDY DESCRIPTION: CT Angio Abdomen and Pelvis Attending Physician: Mane Watson M.D. Ordering Physician: Dedrick Molina M.D. Primary Care Physician: Katja Sosa M.D. MEDICAL IMAGING REPORT This report is preliminary unless electronic signature is present EXAM CT angiography chest, abdomen, and pelvis. HISTORY Headache, hypertension started yesterday, now low back, chest discomfort times today, agitated, confused. Would not lie still. TECHNIQUE CT angiography chest, abdomen, and pelvis performed with intravenous administration 100 mL Isovue-370. 3-dimensional reconstructions performed through the aorta. The study is severely degraded by motion artifact from lower thorax through mid abdomen. This CT exam was performed with one or more of the following radiation dose reduction techniques: automatic exposure control, adjustment of mA and/or kV according to patient size, and iterative reconstruction. COMPARISON CT chest, abdomen, and pelvis 05/26/2016. FINDINGS Heterogeneous thyroid. No dominant nodules seen. No axillary adenopathy. No mediastinal or hilar adenopathy. Heart normal in size. Status post median sternotomy and CABG. No pleural effusions. Extensive centrilobular and panlobular emphysema. Apical subpleural fibrosis bilaterally, stable. Subpleural density, posteromedial superior segment, right lower lobe measuring 3.4 cm x 1.3 cm. No change from prior study. This structure measured 1.4 cm x 3 cm on a study dated 11/02/2015. The apparent increase in size since 11/02/2015 may in part be related to differences in scanning plane. This is probably an area of subpleural fibrosis or rounded atelectasis. CT/PET scan mentioned for further assessment at time of May [address]/PET scan would be useful for further evaluation. There is a subpleural 1 cm x 1.6 cm density in the right middle lobe, medial segment, not significantly changed from STS. [facility] A Service of [facility] RADIOLOGY TEXT RESULTS PATIENT: MANE ARROYO LOCATION: [facility] 329-01 : 39 UNIT #: [id number] AGE: [address]: Mane Watson MD SEX: M ORDER DR: October 2015 and favored to be an area of subpleural fibrotic change or rounded atelectasis. No new nodules are seen. There is no compelling evidence of acute infectious or inflammatory disease in the lungs. Liver unremarkable. Assessment of the gallbladder is severely degraded by motion artifact. No gross evidence of gallstones. The gallbladder appears mildly distended, measuring on the order of perhaps 3.7 cm in diameter, likely within physiologic limits, and there is no gross evidence of pericholecystic fluid. No clear indication of biliary ductal dilatation. The spleen is grossly unremarkable. Bilateral adrenal glands unremarkable. Patient is status post prior left nephrectomy for renal cell carcinoma. There is no clear indication of abnormal soft tissue in the left nephrectomy bed. Right kidney grossly normal, but assessment severely degraded by motion artifact. CT PELVIS: Motion artifact degrades this region, as well. No inguinal adenopathy. Small bilateral inguinal hernias. Loops of small bowel minimally extend into the hernias with no evidence of complication. There is evidence of bilateral inguinal hernia repair previously. There is no pelvic or abdominal fluid collection and no adenopathy suggested. The esophagus, stomach, and small bowel are grossly unremarkable. Moderate stool burden in ascending and transverse colon without pathologic dilatation. There is no clear indication of acute colonic abnormality, but assessment of the transverse colon severely degraded by motion artifact. Status post median sternotomy and CABG. The ascending aorta is ectatic, measuring approximately 3.6 cm in diameter. No change. The great vessel origins are patent, and there is evidence of flow in the proximal common carotid arteries. The descending thoracic aorta is normal in caliber. No dissection. Gross patency of the celiac axis, superior mesenteric artery, and the right renal arteries. I believe there are probably at least 2 right renal arteries. Assessment of the abdominal aorta is severely degraded by motion artifact, but there is no evidence of aneurysmal dilatation. The inferior mesenteric artery is patent. The bilateral common iliac arteries show moderate to severe disease, greater on the left than the right. Even within the context of motion artifact, I believe there is a short segment of critical narrowing in the distal left common iliac artery. External iliac arteries show mild disease. [id number] disease in the common femoral arteries. The proximal superficial femoral and profunda femoris arteries are patent. Bony structures very difficult to evaluate due to the motion artifact. No grossly displaced fracture is seen, but fracture could easily be missed due to motion artifact. The pulmonary arteries, where visualized, are unremarkable. IMPRESSION 1. This examination is severely degraded by motion artifact from level [facility]. [facility] A Service of [facility] RADIOLOGY TEXT RESULTS PATIENT: MANE ARROYO LOCATION: [facility] 329-01 : 39 UNIT #: [id number] AGE: [address]: Mane Watson MD SEX: M ORDER DR: of mid thorax through mid abdomen and at the level of the pelvis. There is no evidence of saumya aortic aneurysm. There is stable ectasia of the ascending aorta, measuring 3.6 cm in diameter. There is no indication of aortic dissection. Assessment of branch vessel anatomy in the proximal to mid abdomen is severely degraded by motion artifact. 2. Incidental note is made of what appears to be critical narrowing in a segment of the distal left common iliac artery. Appearance strongly suggests hemodynamic significance. Correlate with any pelvic or left lower extremity claudication symptoms. Moderate disease in the right common iliac artery. 3. The visualized pulmonary arteries are unremarkable. 4. Extensive emphysema. Fibrotic changes at the lung apices and in the medial right middle lobe are stable. 5. There is a subpleural ovoid area of parenchymal density, medial right lower lobe, superior segment, measuring 3.4 cm x 1.[address] examination, 05/26/2016, but increased in size relative to reported measurements on a CT examination from October 2015. I believe the increase in size from October 2015 may be, to significant degree, secondary to differences in scan angulation through this density. Its appearance raises possibility of rounded atelectasis. Certainly, true neoplastic mass lesion is not entirely excluded, though its rate of change would favor a benign process. Prior study in May [address]/PET scan. This is again recommended for clarification of this finding. 6. Patient is status post left nephrectomy. I see no gross evidence of abnormal soft tissue in the nephrectomy bed. 7. Severely degrading visualization of gallbladder. Grossly unremarkable. No gross acute right kidney abnormality. 8. Moderate stool burden suggested in proximal colon without pathologic dilatation. 9. Bilateral inguinal hernias containing fat. Small portions of small bowel extend just into the hernia sacs bilaterally without complication. 10. Please see remainder of incidental findings in body of report above. Dictated by... Tanner Man M.D. THIS IS AN ELECTRONICALLY VERIFIED REPORT Tanner Man M.D. at 11/01/2016 4:57 PM JACIEL/elvin TD: 11/01/2016 12:51 JOB #: [id number] MEDICAL IMAGING REPORT Page 1 of 1 COPY
--- NOTE | ~2016-10-31 | CO ---
Unit #: [id number] #: [id number] Patient: MANE ARROYO [id number] [address] [place], [place] [address] [id number] MR#: [id number] NAME: MANE ARROYO. ROOM: 329 Age: 76 Sex: M Admission Date: 10/31/2016 : 1940 Attending Physician: Mane Watson M.D. Primary Care Physician: Katja Sosa M.D. CONSULTATION REPORT HISTORY OF PRESENT ILLNESS This is a 76-year-old white male, who is known to Dr. Villagran, who has a history of coronary artery disease. He had coronary artery bypass graft originally in 1990, redo bypass graft x2 in 2014. He also has hypertension, hyperlipidemia, and renal cell carcinoma with lung metastasis and is on oral chemotherapy. The patient is a poor historian, but he came to the emergency room with a chief complaint of headache. Most information has been obtained by the family, who is at bedside because of the patient's confusion. The patient was in his usual state of health yesterday according to the family. This morning, he complained of headache and dyspnea. He noted his blood pressure was elevated at home and they were concerned for stroke, therefore, they brought him to the emergency room. He was found to have an elevated blood pressure of 230/[address] of the head was negative. He was treated with his home dose of clonidine and amlodipine in addition to hydralazine for blood pressure control. He was given morphine for headache. The patient states he had no chest pain or palpitations. He does complain of back pain. The family did not note any fever or chills. There was concern that he had EKG changes, for which Cardiology was asked to see the patient. In review of EKG, there was a negative delta wave in V1 and V2. 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 This was not changed from previous EKG in 2016. PAST MEDICAL HISTORY 1. Coronary artery bypass graft in 1998 with redo bypass graft x2 with saphenous vein graft to the LAD, saphenous vein graft to the PDA and intraoperative transesophageal echocardiogram with mild aortic regurgitation and trace mitral regurgitation. This was done by Dr. Pena at [facility] on 04/30/2014. 2. Last cardiac catheterization on 04/29/[address] Orozco was left main normal. LAD 90% ostial. 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 Left circumflex artery with nonobstructive disease. Right coronary artery mid stent patent. Distal right coronary artery 90%. PLV branch 90%. PDA branch with nonobstructive disease. 3. History of non-ST elevation myocardial infarction, status post PCI with stent to the right coronary artery on 03/04/[address] Villagran. 4. Hypertension. 5. Hyperlipidemia. 6. Peripheral neuropathy. 7. Renal cell carcinoma with metastasis to the lung, status post left nephrectomy, on oral chemotherapy. 8. 2D echocardiogram on 10/30/2015 shows an ejection fraction equal to Unit #: [id number] #: [id number] Patient: MANE ARROYO 50% with mild aortic regurgitation and [id number] mitral regurgitation, mild tricuspid regurgitation. PAST SURGICAL HISTORY 1. Coronary artery bypass graft in 1990 with redo in 2014. 2. Right knee arthroscopic surgery. 3. Left inguinal hernia repair. 4. Right cataract extraction. 5. Appendectomy. 6. Left nephrectomy. SOCIAL HISTORY The patient lives with and is cared for by his and children. He quit smoking over 30 years ago. There is no use of alcohol or illicit drug use. FAMILY HISTORY Positive for heart disease in his father. His mother from a stroke. ALLERGIES No known drug allergies. HOME MEDICATIONS Norvasc 10 mg daily, albuterol 2 puffs b.i.d., aspirin 325 mg daily, axitinib 5 mg b.i.d., Symbicort 160/4.5 mcg 2 puffs b.i.d. REVIEW OF SYSTEMS A 10-point review of systems difficult to assess, because of the patient's confusion. See details in HPI. PHYSICAL EXAMINATION VITAL SIGNS: Blood pressure 178/62, heart rate 62, temperature 97.3. GENERAL: This is a 76-year-old thin frame white male, who is currently distorted because of headache. He is in no acute respiratory distress. NEUROLOGIC: He is awake, noted for restlessness. There are no obvious focal weaknesses. NECK: Trachea is midline. No thyromegaly or lymphadenopathy. No jugular venous distention. HEART: S1 and S2. Heart sounds are normal. No murmurs. No rubs or clicks. Regular rate and rhythm. LUNGS: Diminished breath sounds in both lungs without rales, rhonchi, or wheezes. ABDOMEN: Soft and nontender with bowel sounds are present. No organomegaly. No ascites noted. EXTREMITIES: With palpable pedal pulses and no leg edema. SKIN: Pale and dry. DIAGNOSTIC STUDIES LABORATORY RESULTS: Hemoglobin 16.9, hematocrit 50.8, platelet count 187, white count 8.4. Sodium 139, potassium 4.1, BUN 20, creatinine 1.1, glucose 96. Troponin less than 0.05. IMAGING STUDIES: Chest x-ray shows no active disease. CT of the head shows no acute findings. CARDIOVASCULAR STUDIES: EKG; normal sinus rhythm with a rate of 66 beats per minute. There was a negative deflection delta wave in V1 and V2 with short NV interval consistent with WPW pattern type B. There is mild ST Unit #: [id number] #: [id number] Patient: MANE ARROYO depression in the lateral leads. Questionable old inferior infarct. IMPRESSION 1. Headache secondary to accelerated hypertension. 2. Mental status changes, questionable metastatic malignancy or encephalopathy. 3. Stable angina, status post redo coronary artery bypass with percutaneous coronary intervention and stent to the right coronary artery in 2013. 4. 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 5. History of renal cell carcinoma with lung metastasis. PLAN 1. Cardiology was consulted for abnormal EKG and accelerated hypertension. We will control blood pressure with Catapres patch 0.2 mg per day and IV metoprolol. Cardene drip will be started. 2. We will admit the patient to the intensive care unit for Cardene drip. 3. CTA of the chest will be done to rule out thoracic aortic aneurysm. 4. CT of the head has been done to rule out intranasal pathology. 5. We will ask Neuro to see the patient. 6. Repeat troponin and EKG. There were no acute changes to suggest an acute event. 7. This has been discussed with the son in detail at bedside. Thank you for allowing us to assist with this patient's care. Dictated by... Deshawn Orr A.P.R.N. for Ara López/julien TD: 11/02/2016 10:48 JOB #: [id number] CC: Ara Chavis IV, M.D. CONSULTATION REPORT Page 1 of 1 X Deshawn Orr APRN CONSULTATION REPORT
--- NOTE | ~2016-10-31 | CR72 ---
[facility] A Service of [facility] & [facility] RADIOLOGY TEXT RESULTS PATIENT: MANE ARROYO LOCATION: [facility] 329-01 : 39 UNIT #: [id number] AGE: [address]: Mane Watson MD SEX: M ORDER DR: [id number] [facility] [address]. [place], [place] [address] [id number] MR#: [id number] Acc #: [id number] NAME: MANE ARROYO. : 1940 SEX: M STUDY DATE/TIME: 10/31/2016 15:24 [facility]: [facility] STUDY DESCRIPTION: CR Chest Single View Portable Attending Physician: Mane Watson M.D. Ordering Physician: Dedrick Molina M.D. Primary Care Physician: Katja Sosa M.D. MEDICAL IMAGING REPORT This report is preliminary unless electronic signature is present EXAM AP view of the chest COMPARISON October 29, 2015, June 10, 2011 and July 22, 2009. INDICATION A 76-year-old male with chest pain and dyspnea since yesterday. FINDINGS Changes of CABG are noted, grossly stable. Cardiomediastinal silhouette is stable and within normal limits. No evidence of pneumothorax, pleural effusion or acute airspace disease. Biapical pleural parenchymal thickening/scarring is grossly stable going back to 2009. Calcified granuloma in the right pulmonary apex. IMPRESSION No acute radiographic abnormality of the chest. Changes of CABG. Normal heart size. Dictated by... Narendra Melo M.D. THIS IS AN ELECTRONICALLY VERIFIED REPORT Narendra Melo M.D. at 11/03/2016 10:46 AM GRETTA/dominic TD: 11/01/2016 10:46 JOB #: [id number] MEDICAL IMAGING REPORT Page 1 of 1 COPY
--- NOTE | ~2016-10-31 | DS ---
Unit #: [id number] #: [id number] Patient: MANE ARROYO [id number] [address] [place], [place] [address] [id number] I MR#: [id number] NAME: MANE ARROYO ROOM: 329 Age: 76 Sex: M Admission Date: 10/31/2016 : 1940 Discharge Date: Attending Physician: Mane Watson M.D. Primary Care Physician: Katja Sosa M.D. DISCHARGE SUMMARY PRIMARY DIAGNOSIS Toxic encephalopathy versus acute delirium. SECONDARY DIAGNOSES 1. Hypertensive emergency. 2. 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 3. Hypothyroidism, uncontrolled, with elevated TSH. 4. Coronary artery disease, clinically stable. 5. Chronic obstructive pulmonary disease, clinically stable. 6. Proteinuria on urinalysis. 7. Chronic ataxia. HOSPITAL COURSE Patient was admitted to the hospital with altered mental status and markedly uncontrolled hypertension. This is similar to a presentation the patient had to our hospital in October 2015. The patient was admitted to the ICU on October 31 and was able to be rapidly titrated off of a Cardene drip and was transferred to a telemetry floor on a clonidine patch. Consultations were obtained with Dr. Fields with Neurology and with Dr. Dawson with Cardiology for his coronary artery disease with history of coronary artery bypass grafting. 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 Troponins were negative, and there were no acute changes on his EKG to suggest any acute myocardial event. Imaging during this hospitalization has included a CT head on October 31 without contrast, a portable chest x-ray on October 31, and CT angiogram of the chest, abdomen, and pelvis which was done on the evening of October 31, and there was an attempted repeat CT of the head on the evening of October 31 but was fairly nondiagnostic based on motion artifact. We did attempt to repeat CT scanning of the head with contrast on November 02, but despite IV Ativan and giving the patient Haldol, this was unsuccessful. The patient has a history of claustrophobia and has been intolerant to getting MRIs in the past. We consulted Anesthesia to try to get the patient an MRI and possibly a spinal tap under anesthesia, but they are unable to do appropriate anesthesia monitoring at our facility. He is therefore being transferred to [facility] for continued evaluation with an MRI of the head under anesthesia and likely a spinal tap under anesthesia as well. The patient has not shown any clinical improvement despite blood pressure being controlled very well since approximately 1 a.m. on November 01. DISCHARGE DISPOSITION [facility]. Unit #: [id number] #: [id number] Patient: MANE ARROYO DISCHARGE STATUS Guarded. DISCHARGE DIET N.p.o. DISCHARGE ACTIVITY Bedrest. Patient is a fall risk. FOLLOWUP Will be determined upon discharge from [facility]. DISCHARGE MEDICATIONS Please see discharge medication reconciliation. Dictated by... Mane Watson M.D. BRYAN/sharda TD: 11/03/2016 14:58 JOB #: [id number] DISCHARGE SUMMARY Page 1 of 1 X Mane Watson MD X DISCHARGE SUMMARY
[2016-10-31] MEDS ORDERED: NORVASC10 MG PO (15:50)
[2016-10-31] MEDS ORDERED: SYMBICORT 160/4.6 GM INH (15:51)
[2016-10-31] MEDS ORDERED: LITE COAT ASPI325 M2 PO (15:51)
[2016-10-31] MEDS ORDERED: PROAIR RESPICL90 MCG INH (15:51)
[2016-10-31] MEDS ORDERED: INLYTA5 MG PO (15:51)
[2016-10-31 15:52] LABS: POC - CKMB 1.4 ng/mL (0.0-7.9); POC - TROPONIN <0.05 ng/mL (<=0.05)
[2016-10-31] MEDS ORDERED: GABAPENTIN300 M2 PO (15:52)
[2016-10-31] MEDS ORDERED: ALLERCLEAR10 MG PO (15:52)
[2016-10-31] MEDS ORDERED: LASIX20 MG PO (15:52)
[2016-10-31] MEDS ORDERED: SYNTHROID112 MCG PO (15:52)
[2016-10-31] MEDS ORDERED: FLONASE 0.05% N16 G1 (15:52)
[2016-10-31 15:53] LABS: BASOPHIL# 0.1 X10e3 (0-0.3); BASOPHIL% 0.7 % (0-2.5); EOSINOPHIL# 0.1 X10e3 (0-0.7); EOSINOPHIL% 0.8 % (0.0-7.0); HEMATOCRIT 50.8 % (38.0-50.0); HEMOGLOBIN 16.9 gm/dL (13.0-16.0); LYMPHOCYTE# 1.8 X10e3 (1.0-3.5); LYMPHOCYTE% 20.8 % (17.0-45.0); MEAN CELL VOLUME 85.3 FL (83-96); MEAN CORPUSCULAR HEMOGLOBIN 28.4 PG (28-34); MEAN CORPUSCULAR HGB CONC 33.3 g/dL (30-36); MEAN PLATELET VOLUME 7.8 FL (6.5-11.5); MONOCYTE# 0.7 X10e3 (0-1.0); NEUTROPHIL# 5.9 X10e3 (1.5-7.1); NEUTROPHIL% 69.7 % (40-75); PLATELET COUNT 188 X10e3 (140-420); RED BLOOD COUNT 5.95 X10e (3.90-5.60); RED CELL DISTRIBUTION WIDTH 16.8 % (11.0-15.5); WHITE BLOOD COUNT 8.4 X10e3 (4.0-10.5)
[2016-10-31] MEDS ORDERED: ZOFRAN 2 MG4 MG/2 ML PO (15:53)
[2016-10-31] MEDS ORDERED: ZOCOR PO (15:54)
[2016-10-31 15:55] LABS: DIFF IND YES
[2016-10-31] MEDS ORDERED: FLOMAX0.4 M1 PO (15:55)
[2016-10-31] MEDS ORDERED: VITAMIN D3400 UNI2 PO (15:56)
[2016-10-31] MEDS ORDERED: CYANOCOBAL1000 MCG/1 IM (15:56)
[2016-10-31] MEDS ORDERED: METOPROLOL PO (15:59)
[2016-10-31 16:22] LABS: RBC NORMAL YES
[2016-10-31 16:23] LABS: PLATELET ESTIMATE NORMAL (NORMAL)
[2016-10-31 16:26] LABS: BUN/CREATININE RATIO 18.18; CALCIUM SERUM 8.9 mg/dL (8.4-10.2); CREATININE SERUM 1.1 mg/dL (0.6-1.4); GLOM FILT RATE Estimated 64.4 mL/min (>60); POTASSIUM 4.1 mmol/L (3.5-5.1)
[2016-10-31 17:53] LABS: POC - CKMB <1.0 ng/mL (0.0-7.9); POC - TROPONIN <0.05 ng/mL (<=0.05)
[2016-10-31 20:43] LABS: ALBUMIN SERUM 3.5 g/dL (3.5-5.0); BILIRUBIN, DIRECT 0.1 mg/dL (0.0-0.2); BILIRUBIN,INDIRECT 0.7 mg/dL (0.0-0.9); BILIRUBIN,TOTAL 0.8 mg/dL (0.2-2.0); PROTEIN TOTAL SERUM 6.1 g/dL (6.0-8.3)
[2016-10-31 21:05] LABS: FOLATE (FOLIC ACID) 18.2 ng/mL (>5.8)
[2016-10-31 22:41] LABS: URINE APPEARANCE CLEAR; URINE BILIRUBIN NEG (NEG); URINE BLOOD NEG (NEG); URINE COLOR YELLOW; URINE GLUCOSE NEG (NEG); URINE KETONE NEG (NEG); URINE LEUKOCYTE ESTERASE NEG (NEG); URINE NITRATE NEG (NEG); URINE PROTEIN 3+ (NEG); URINE SPECIFIC GRAVITY 1.027 (1.003-1.035)
[2016-10-31 22:44] LABS: URINE BACTERIA AUWI NEG (NEGATIVE); URINE SQUAMOUS EPITHELIAL CELL OCC /[HPF]; UWBCS1 AUWI 0-2 (0-5)
[2016-10-31 22:48] LABS: CULTURE INDICATED? NO
[2016-11-01 01:20] LABS: CK TOTAL 28 IU/L (36-174)
[2016-11-01 06:19] LABS: BASOPHIL% 0.4 % (0-2.5); CK TOTAL 26 IU/L (36-174); EOSINOPHIL% 0.3 % (0.0-7.0); HEMATOCRIT 50.5 % (38.0-50.0); HEMOGLOBIN 16.3 gm/dL (13.0-16.0); LYMPHOCYTE# 1.6 X10e3 (1.0-3.5); LYMPHOCYTE% 14.1 % (17.0-45.0); MEAN CORPUSCULAR HEMOGLOBIN 27.7 PG (28-34); MEAN CORPUSCULAR HGB CONC 32.2 g/dL (30-36); MEAN PLATELET VOLUME 7.8 FL (6.5-11.5); MONOCYTE% 8.9 % (3.0-12.0); NEUTROPHIL# 8.6 X10e3 (1.5-7.1); NEUTROPHIL% 76.3 % (40-75); PLATELET COUNT 213 X10e3 (140-420); RED BLOOD COUNT 5.87 X10e (3.90-5.60); RED CELL DISTRIBUTION WIDTH 17.3 % (11.0-15.5); WHITE BLOOD COUNT 11.3 X10e3 (4.0-10.5)
[2016-11-01 06:23] LABS: DIFF IND NO
[2016-11-02 07:35] LABS: BASOPHIL# 0.1 X10e3 (0-0.3); BASOPHIL% 0.7 % (0-2.5); EOSINOPHIL# 0.1 X10e3 (0-0.7); EOSINOPHIL% 0.6 % (0.0-7.0); HEMATOCRIT 47.7 % (38.0-50.0); HEMOGLOBIN 15.8 gm/dL (13.0-16.0); LYMPHOCYTE# 1.4 X10e3 (1.0-3.5); LYMPHOCYTE% 13.5 % (17.0-45.0); MEAN CORPUSCULAR HEMOGLOBIN 28.1 PG (28-34); MEAN CORPUSCULAR HGB CONC 33.1 g/dL (30-36); MONOCYTE# 1.1 X10e3 (0-1.0); MONOCYTE% 10.4 % (3.0-12.0); NEUTROPHIL# 7.8 X10e3 (1.5-7.1); NEUTROPHIL% 74.8 % (40-75); PLATELET COUNT 207 X10e3 (140-420); RED BLOOD COUNT 5.61 X10e (3.90-5.60); RED CELL DISTRIBUTION WIDTH 16.8 % (11.0-15.5); WHITE BLOOD COUNT 10.5 X10e3 (4.0-10.5)
[2016-11-02 07:36] LABS: DIFF IND NO
[2016-11-02 08:08] LABS: ALBUMIN SERUM 3.7 g/dL (3.5-5.0); BILIRUBIN,TOTAL 1.6 mg/dL (0.2-2.0); BUN/CREATININE RATIO 24.61; CALCIUM SERUM 9.1 mg/dL (8.4-10.2); CREATININE SERUM 1.3 mg/dL (0.6-1.4); GLOM FILT RATE Estimated 52.6 mL/min (>60); MAGNESIUM 1.9 mg/dL (1.6-3.0); PHOSPHOROUS 4.2 mg/dL (2.5-4.6); POTASSIUM 4.1 mmol/L (3.5-5.1); PROTEIN TOTAL SERUM 6.5 g/dL (6.0-8.3)
[2016-11-03 06:48] LABS: CALCIUM SERUM 9.2 mg/dL (8.4-10.2); GLOM FILT RATE Estimated 72.3 mL/min (>60)
== END 2016-11-03 17:35 | DRG 77 ==
LOC: CED 14:25 → CEDOF 19:45 → CED 19:59 → CEDOF 19:59 → CICCU3 22:15 → CEDOF 22:15 → CICCU3 22:15 → C3A PCU 11-01 16:45
PROVIDERS: Emergency Medicine; Family Medicine; Internal Medicine
PROC: B32TYZZ Computerized Tomography (CT Scan) of Left Pulmonary Artery using Other Contrast (ICD-10-PCS; principal; 2016-10-31)
PROC: B32SYZZ Computerized Tomography (CT Scan) of Right Pulmonary Artery using Other Contrast (ICD-10-PCS; 2016-10-31)
PROC: B420YZZ Computerized Tomography (CT Scan) of Abdominal Aorta using Other Contrast (ICD-10-PCS; 2016-10-31)
PROC: B42CYZZ Computerized Tomography (CT Scan) of Pelvic Arteries using Other Contrast (ICD-10-PCS; 2016-10-31)
DX: I67.4 Hypertensive encephalopathy (principal); E43 Unspecified severe protein-calorie malnutrition; G92 Toxic encephalopathy; C64.2 Malignant neoplasm of left kidney, except renal pelvis; C78.00 Secondary malignant neoplasm of unspecified lung; G62.9 Polyneuropathy, unspecified; F03.90 Unspecified dementia, unspecified severity, without behavioral disturbance, psychotic disturbance, mood disturbance, and anxiety; I16.1 Hypertensive emergency; Z68.1 Body mass index [BMI] 19.9 or less, adult; I10 Essential (primary) hypertension; I25.10 Atherosclerotic heart disease of native coronary artery without angina pectoris; Z95.1 Presence of aortocoronary bypass graft; E78.5 Hyperlipidemia, unspecified; I25.2 Old myocardial infarction; Z95.5 Presence of coronary angioplasty implant and graft; Z98.41 Cataract extraction status, right eye; Z87.891 Personal history of nicotine dependence; Z82.3 Family history of stroke; Z82.49 Family history of ischemic heart disease and other diseases of the circulatory system; Z79.82 Long term (current) use of aspirin; R77.9 Abnormality of plasma protein, unspecified; R27.0 Ataxia, unspecified; J44.9 Chronic obstructive pulmonary disease, unspecified; I08.1 Rheumatic disorders of both mitral and tricuspid valves; R41.0 Disorientation, unspecified; R51 Headache; Z90.49 Acquired absence of other specified parts of digestive tract; Z86.79 Personal history of other diseases of the circulatory system
CPT/HCPCS: 36415; 70450; 71010; 71275; 74174; 80048; 80053; 80076; 81003; 82550; 82553; 82607; 82746; 82947; 83735; 84100; 84443; 84484; 85025; 93005; 94640; 94664; 94760; 96374; 96375; 96376; 99284; 99285; J0360; J1630; J1885; J2060; J2270; J3486; J3490; Q9967